=== PATIENT | male | born 1945 | race Caucasian/White ===

== ENCOUNTER → 2018-06-07 | Outpatient (CLI) | payer OTHER ==
[~2018-06-07] MED LIST: ALPRAZOLAM 0.50.5 MG PO; COZAAR 50 MG TA50 M1 PO; HCTZ; KEFLEX500 MG PO; PLAVIX 75 MG TA75 MG PO; SIMVASTATIN40 MG PO
== END ==
LOC: M.RAD 16:32
DX: M17.11 Unilateral primary osteoarthritis, right knee (principal); M16.0 Bilateral primary osteoarthritis of hip; M11.261 Other chondrocalcinosis, right knee; M25.761 Osteophyte, right knee